=== PATIENT | female | born 1955 | race Caucasian/White ===

== ENCOUNTER 2017-01-16 19:40 | Observation (INO) | payer BC ==
[~2017-01-16] VITALS: Ht 152.4 cm; Wt 76.5 kg
[2017-01-16 19:58] LABS: POINT-OF-CARE METER ID UU13113778
[2017-01-16 21:12] LABS: HEMATOCRIT 43.9 % (36.0-46.0); MCH 31.6 PG (29.0-34.0); MCHC 35.5 G/DL (30.0-36.0); MCV 88.9 FL (83-99); PLATELET COUNT 293 K/uL (156-360); RBC DIS.WIDTH-CV 11.8 % (11.8-14.6); RBC DIS.WIDTH-SD 38.2 % (39-53); RED BLOOD COUNT 4.94 M/uL (3.80-5.20); WHITE BLOOD COUNT 19.9 K/uL (4.1-10.2)
[2017-01-16 21:17] LABS: PROTHROMBIN TIME 10.5 SEC (10.2-12.9)
[2017-01-16 21:20] LABS: PTT 28.2 SEC (25-37)
[2017-01-16 21:22] LABS: CHLORIDE 105 mEq/L (99-109); POTASSIUM 3.8 mEq/L (3.7-5.4); SODIUM 143 mEq/L (136-147)
[2017-01-16 21:24] LABS: GLUCOSE 190 mg/dL (70-99)
[2017-01-16 21:25] LABS: ANION GAP 13 MEQ/L (2-14)
[2017-01-16 21:27] LABS: GFR ESTIMATE (CALCULATED) > 59 mL/min/
[2017-01-16 21:28] LABS: UREA NITROGEN (BUN) 15 mg/dL (9-23)
[2017-01-16 21:36] LABS: TROP-I INTERPRETATION NEGATIVE; TROPONIN-I 0.02 ng/mL (0.0-0.30)
[2017-01-17 00:30] VITALS: BP 154/72
[2017-01-17] MEDS ORDERED: ATORVASTATIN CA20 MG PO (00:45)
[2017-01-17] MEDS ORDERED: LOSARTAN-HCTZ1 EAC2 PO (00:46)
[2017-01-17] MEDS ORDERED: PROBIOTIC1 EAC1 PO (00:47)
[2017-01-17 04:56] LABS: HEMATOCRIT 40.6 % (36.0-46.0); MCH 31.3 PG (29.0-34.0); MCHC 34.7 G/DL (30.0-36.0); MCV 90.2 FL (83-99); MEAN PLAT.VOLUME 10.4 uM^3 (9.5-12.4); PLATELET COUNT 273 K/uL (156-360); RBC DIS.WIDTH-CV 11.9 % (11.8-14.6); RBC DIS.WIDTH-SD 39.2 % (39-53)
[2017-01-17 05:02] LABS: CHLORIDE 104 mEq/L (99-109); POTASSIUM 3.7 mEq/L (3.7-5.4); SODIUM 140 mEq/L (136-147)
[2017-01-17 05:04] LABS: GLUCOSE 179 mg/dL (70-99)
[2017-01-17 05:05] LABS: ANION GAP 11 MEQ/L (2-14)
[2017-01-17 05:06] LABS: TOTAL BILIRUBIN 0.4 mg/dL (0.0-1.0)
[2017-01-17 05:08] LABS: ALKALINE PHOSPHATASE 82 IU/L (3-129); GFR ESTIMATE (CALCULATED) > 59 mL/min/
[2017-01-17 05:09] LABS: TROP-I INTERPRETATION NEGATIVE; TROPONIN-I < 0.01 ng/mL (0.0-0.30); UREA NITROGEN (BUN) 13 mg/dL (9-23)
[2017-01-17 07:19] VITALS: BP 159/74
[2017-01-17 10:25] LABS: TROP-I INTERPRETATION NEGATIVE; TROPONIN-I < 0.01 ng/mL (0.0-0.30)
[2017-01-17 10:31] LABS: ADD MIUA? YES; BILIRUBIN NEGATIVE; BLOOD NEGATIVE; COLOR YELLOW ((YELLOW)); GLUCOSE (STRIP) NEGATIVE; KETONES NEGATIVE; LEUKOCYTES MODERATE; NITRITE NEGATIVE; PROTEIN (STRIP) NEGATIVE; SPECIFIC GRAVITY 1.015 (1.000-1.030); UROBILINOGEN 0.2 MG/DL (0.2-1.0)
[2017-01-17] MEDS ORDERED: ASPIR-LOW81 MG PO (10:47)
[2017-01-17] MEDS ORDERED: CEFTIN500 MG PO (10:48)
[2017-01-17 10:55] LABS: BACTERIA NONE SEEN /HPF; EPITHELIAL CELLS RARE /HPF; MUCUS NONE SEEN /LPF; RED BLOOD CELLS 0-5 /HPF (0-5); UCUL ADDED? YES
== END 2017-01-17 11:40 | disposition home or self-care (01) ==
LOC: EME 19:40 → EDOF 23:31 → 5WEST 23:31 → ENRESERV 23:33 → ENPENDDIS 01-17 → 5WEST 01-17 00:25
PROVIDERS: Emergency Medicine; Internal Medicine; Nurse Practitioner Adult Health
DX: R07.9 Chest pain, unspecified (principal); E11.65 Type 2 diabetes mellitus with hyperglycemia; I10 Essential (primary) hypertension; E78.5 Hyperlipidemia, unspecified; K76.0 Fatty (change of) liver, not elsewhere classified; D72.829 Elevated white blood cell count, unspecified; Z85.828 Personal history of other malignant neoplasm of skin; Z91.041 Radiographic dye allergy status
CPT/HCPCS: 71020; 80048; 80053; 81003; 82948; 84484; 85027; 85610; 85730; 87086; 93005; 99281; 99285; G0378

== ENCOUNTER 2017-04-06 07:38 | Day surgery (SDC) | payer BC ==
[~2017-04-06] VITALS: Ht 152.4 cm; Wt 77.1 kg
[~2017-04-06 07:38] MED LIST: ASPIR-LOW81 MG PO; ATORVASTATIN CA20 MG PO; CEFTIN500 MG PO; CINNAMON500 MG PO; LOSARTAN-HCTZ1 EAC2 PO; POTASSIUM-9999 MG PO; PROBIOTIC1 EAC1 PO
[2017-04-06 08:17] VITALS: BP 136/81
[2017-04-06 08:50] LABS: POINT-OF-CARE METER ID UU14174212
[2017-04-06] MEDS ORDERED: MOTRIN600 MG PO (11:22)
[2017-04-06] MEDS ORDERED: NORCO 5/3251 TABLET PO (11:22)
[2017-04-06 11:44] LABS: POINT-OF-CARE METER ID UU13113675; POINT-OF-CARE USER ID 515036437
[2017-04-06 11:55] LABS: POINT-OF-CARE METER ID UU13113675
[2017-04-06 12:05] VITALS: BP 122/61
[2017-04-06 13:40] VITALS: BP 129/66
== END 2017-04-06 13:52 | disposition home or self-care (01) ==
LOC: SDC 07:38
PROVIDERS: Surgery
PROC: 0WQF4ZZ Repair Abdominal Wall, Percutaneous Endoscopic Approach (ICD-10-PCS; principal; 2017-04-06)
DX: K43.9 Ventral hernia without obstruction or gangrene (principal); K42.9 Umbilical hernia without obstruction or gangrene; I10 Essential (primary) hypertension; E11.9 Type 2 diabetes mellitus without complications; E78.00 Pure hypercholesterolemia, unspecified; E66.9 Obesity, unspecified; Z68.33 Body mass index [BMI] 33.0-33.9, adult; Z85.828 Personal history of other malignant neoplasm of skin; Z79.82 Long term (current) use of aspirin; Z86.72 Personal history of thrombophlebitis
CPT/HCPCS: 82948; C1781; J0131; J0330; J0690; J1885; J2250; J2405; J2710; J2765; J3010; S0020